=== PATIENT | male | born 1980 | race Two or more races ===

== ENCOUNTER 2019-01-22 15:17 | Emergency (ER) | payer OTHER ==
[2019-01-22 15:17] VITALS: BMI 34.2
[2019-01-22 15:28] VITALS: RESP 20; TEMP 98.5
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
--- NOTE | 2019-01-22 16:15 | RAD ---
Date of service: 01/22/2019 PROCEDURE: Radiographs of the Left Shoulder HISTORY: r/o dislocation COMPARISON: No prior. FINDINGS: BONES: No definite fracture. There is curvilinear high attenuation seen inferior to the distal clavicle, possibly an avulsion cortical fragment. Consideration should be given to evaluation with computed tomography if clinically warranted. No other fracture identified. JOINTS: Normal. Glenohumeral and acromioclavicular joints preserved. No osteoarthritis. SOFT TISSUES: Normal. OTHER FINDINGS: None. IMPRESSION: Questionable avulse cortical fragment inferior to the distal clavicle. Consider further evaluation with computed tomography if clinically warranted.
[2019-01-22] MEDS ORDERED: Oxycodone/Acetaminophen 5/325 mg Tab PO ONE (16:25)
[2019-01-22] MEDS ORDERED: Oxycodone/Acetaminophen 5/325 mg Tab ONE (16:37)
--- NOTE | 2019-01-22 17:35 | CT ---
Date of service: 01/22/2019 PROCEDURE: CT left shoulder HISTORY: L shoulder pain COMPARISON: Not available TECHNIQUE: 2.5 mm contiguous axial sections were acquired through the left shoulder. Sagittal and coronal images were reformatted from the axial scan. Contrast administered: None Total exam DLP: 437.81 mGy-cm. This CT exam was performed using 1 or more of the following dose reduction techniques: Automated exposure control, adjustment of the mA and/or kV according to patient size, and/or use of iterative reconstruction technique. FINDINGS: There is a nondisplaced fracture of the greater tuberosity of the proximal left humerus. It is mildly comminuted. There is no other fracture identified. The questionable distal clavicular fracture identified on plain radiographic examination is not confirmed. The glenohumeral and acromioclavicular articulations are intact. There is no significant soft tissue abnormality identified. IMPRESSION: Nondisplaced mildly comminuted fracture of the greater tuberosity of the proximal left humerus.
[2019-01-22 17:40] VITALS: BP 159/131; PULSE 109
[2019-01-22 17:45] VITALS: O2SAT 100
== END 2019-01-22 18:09 | disposition home or self-care (01) ==
LOC: C.ER 15:17
DX: S42.255A Nondisplaced fracture of greater tuberosity of left humerus, initial encounter for closed fracture (principal); Y04.0XXA Assault by unarmed brawl or fight, initial encounter
CPT/HCPCS: 73030; 73200; 96372; 99285; J1885